=== PATIENT | male | born 1955 | race African-American/Black ===

== ENCOUNTER 2016-05-23 12:16 | Observation (INO) | payer OTHER ==
--- NOTE | ~2016-05-23 | HP ---
History And Physical [address] [place]. [address] NAME: JOAN RODRIGUES : 55 STATUS : DIS Domitila PAT#: [id number] AGE: 60 ADM/REG DATE : 05/23/16 MR#: [id number] REPORT SERV DATE: 05/24/16 DICTATED BY: KELSIE SHRESTHA DATE: 05/24/16 REPORT STATUS : Draft TRANSCRIBED BY: MODSha DATE: 05/24/16 DATE OF ADMISSION: 05/23/2016 PRIMARY CARE PROVIDER: Dr. Aniket Martinez. CHIEF COMPLAINT: Chest and left back pain along with dyspnea. HISTORY OF PRESENT ILLNESS: This is a pleasant 60-year-old male with a history of an acute stroke along with high blood pressure and high cholesterol. He has no personal history of coronary artery disease. He was in his usual state of good health until Saturday. He reports he felt left-sided back pain that was sharp and radiating through to his left chest. 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 He reports the symptoms continued and radiated through to the left chest. He reports when he took a deep breath, that his chest pain was worse and it sounds very pleuritic in nature. He also reports that he has had dyspnea since Saturday. He denies any chest pain with exertion. He denies any other symptoms. He has no recent illness. Chest pain is fully resolved since yesterday evening. PAST MEDICAL HISTORY: 1. Hypertension. 2. Hyperlipidemia. 3. CVA 10 years ago, seen by Dr. Isacc Whitaker neurologist. He does have subsequent mild peripheral left visual field loss but otherwise no deficits. PAST SURGICAL HISTORY: None. SOCIAL HISTORY: He is . He quit smoking over 14 years ago after smoking one and half packs per day x30 years. He works as a warehouse logistics coordinator. He does drink beer daily. He reports he drinks 6 packs of beer every day. He denies any history of going through withdrawals. FAMILY HISTORY: Father with history of CVA. REVIEW OF SYSTEMS: The patient denies ever having a cardiac evaluation. ALLERGIES: NO KNOWN ALLERGIES. HOME MEDICATIONS: Reviewed and is as follows: 1. Aspirin 81 mg p.o. daily. 2. Multivitamin 1 tablet p.o. daily. 3. Benicar 20 mg p.o. daily. 4. Crestor 10 mg p.o. daily. 5. Flomax 0.4 mg p.o. daily. PHYSICAL EXAMINATION: History And Physical [address] [place]. [address] NAME: JOAN RODRIGUES : 55 STATUS : DIS Domitila PAT#: [id number] AGE: 60 ADM/REG DATE : 05/23/16 MR#: [id number] REPORT SERV DATE: 05/24/16 DICTATED BY: KELSIE SHRESTHA DATE: 05/24/16 REPORT STATUS : Draft TRANSCRIBED BY: SHIRLEY DATE: 05/24/16 VITAL SIGNS: Oxygen saturation 93% on room air, body mass index 25.1, temperature 97.8, pulse 74, respiratory rate 18, and blood pressure 127/79. GENERAL: Well developed, well nourished. In no apparent distress. HEENT: Head normocephalic. No xanthelasma. Sclera clear, anicteric. Moist mucous membranes without pallor. No lymphadenopathy. No deficits noted. NECK: Trachea midline. Supple. No thyromegaly, JVD, or bruits. RESPIRATORY: Unlabored respirations. Breath sounds clear bilaterally to posterior auscultation. No wheezes, rhonchi or crackles. CARDIOVASCULAR: Regular rate and rhythm. No murmur, rub, or gallop appreciated. No chest wall tenderness to palpation. ABDOMEN: Soft, nontender, and nondistended. Active bowel sounds auscultated x4 quadrants. No organomegaly and no masses. No aortic bruit. EXTREMITIES: DP/PT and radial pulses 2+ bilaterally. No clubbing, cyanosis, or edema. SKIN: Warm, dry, intact. No rash. Normal turgor. MUSCULOSKELETAL: Moves all extremities in bed without difficulty. NEUROLOGIC/PSYCHIATRIC: Alert and oriented x3 with no acute distress. Affect appropriate to current situation. LABORATORY DATA: BMP: Sodium 139, potassium 3.8, creatinine 0.76, glucose 100, calcium 9, and magnesium 2.3. CBC: White blood cell count 4.8, hemoglobin 15.5, hematocrit 42.7, and platelets 173. Troponin less than 0.02 x3. CTA: No acute cardiopulmonary disease. No pulmonary emboli. A 4 mm nodule noted in the left lower lobe along with probable hepatic cyst. Their recommendation is for a CT with noncontrast in 6 months for both the nodules in the lung along with the hepatic cyst. Chest x-ray, subtle changes of the right lung base, otherwise clear. EKGs personally interpreted x3. Normal sinus rhythm and sinus arrhythmia x3. Telemetry, sinus rhythm, rate 60s. Nuclear stress test. This is considered to be an overall low risk stress test with imaging demonstrating no ischemia. Post exercise LVEF is 50%. Consider outpatient echocardiogram for LVEF followup. ASSESSMENT AND PLAN: 1. Precordial chest pain. This does have atypical features with a pleuritic nature. Chest pain is resolved. CTA revealed no pulmonary emboli. Negative troponins. EKG benign. Cardiac risk factors included age, hypertension, hyperlipidemia, and former tobacco use. I obtained a nuclear stress test today for risk factor stratification. It is considered to be low risk with no ischemia. Post exercise LVEF was estimated at 50%. The [facility] stage 1 only was achieved. Recommendation was to consider an outpatient echocardiogram for LVEF followup. Therefore, I will have him follow up with History And Physical [address] [address] NAME: JOAN RODRIGUES : 55 STATUS : DIS Domitila PAT#: [id number] AGE: 60 ADM/REG DATE : 05/23/16 MR#: [id number] REPORT SERV DATE: 05/24/16 DICTATED BY: KELSIE SHRESTHA DATE: 05/24/16 REPORT STATUS : Draft TRANSCRIBED BY: MODSha DATE: 05/24/16 the [facility] in 3 to 4 weeks as a new patient. At that time, they can further discuss whether or not the patient requires an echocardiogram. This will be arranged. The patient will be discharged home at this time. 2. Dyspnea. There is no hypoxia. Chest x-ray is clear. He is to follow up with primary care provider for further evaluation and treatment. 3. Hypertension. This is well controlled on current medications. 4. Hyperlipidemia. Continue his home statin. 5. History of CVA. We will continue his home medications to include aspirin and statin. 6. Left lower lobe nodule and probable hepatic cysts on CTA of the chest. I reviewed these results with the patient. I asked the copy to be sent to his primary care provider. He was counseled that he requires a CT with contrast in 6 months for monitoring of this nodule and cyst. This was per the recommendation of radiology. The patient voiced understanding and is in agreement with this plan. 7. Former tobacco use. I congratulated the patient on quitting. 8. Ongoing alcohol use. I have encouraged him to moderate his alcohol intake. The patient voiced understanding and is in agreement with the plan. He will be discharged home at this time. The patient was seen down the stress testing area by rounding production welding supervisor. CARY/SHIRLEY Kelsie Shrestha NP / [id number] CC: Melissa Patel, MSN, OIL BURNER REPAIRER-BC Francisco Martinez M.D.
[2016-05-23 12:55] LABS: BASOPHILS 0.4 %; BASOPHILS ABSOLUTE 0.02 10/3/uL (0.0-0.16); EOSINOPHILS 0.8 %; EOSINOPHILS ABSOLUTE 0.04 10/3/uL (0.0-0.53); HEMATOCRIT 43.7 % (40.0-51.0); HEMOGLOBIN 15.5 g/dL (13.6-17.8); IMMATURE GRANULOCYTES 0.2 %; IMMATURE GRANULOCYTES ABSOLUTE 0.01 10/3/uL (0.0-0.11); LYMPHOCYTES 19.5 %; LYMPHOCYTES ABSOLUTE 0.93 10/3/uL (0.67-4.30); MANUAL DIFF NO %; MEAN CORPUS HGB CONC 35.5 g/dL (32.0-36.0); MEAN CORPUSCULAR HEMOGLOB 30.9 pg (26.0-34.0); MEAN CORPUSCULAR VOLUME 87.1 fL (80-100); MEAN PLATELET VOLUME 9.5 fL (9.2-13.0); MONOCYTES 11.1 %; MONOCYTES ABSOLUTE 0.53 10/3/uL (0.21-1.20); NEUTROPHILS ABSOLUTE 3.25 10/3/uL (2.02-8.40); PLATELET COUNT 173 10/3/uL (150-400); RBC DISTRIBUTION WIDTH 14.3 % (12.0-16.0); RED CELL COUNT 5.02 10/6/uL (4.7-6.1); WHITE BLOOD CELLS 4.8 10/3/uL (4.5-10.5)
[2016-05-23 13:07] LABS: PROTIME (NOT ORD) 13.5 SEC (12.0-14.5)
[2016-05-23 13:08] LABS: PARTIAL THROMBO TIME 25.5 SEC (22.5-37.2)
[2016-05-23 13:14] LABS: BUN (BLOOD UREA NITROGEN) 9 MG/DL (6-23); CHEST PAIN PROFILE TAT 0 Hrs 23 Mins; CHLORIDE, SERUM 102 MMOL/L (96-112); CO2 (CARBON DIOXIDE) 28 MMOL/L (24-34); CREATININE 0.76 MG/DL (0.70-1.30); GFR AFRICAN AMERICAN 115 ML/MIN (>=60); GFR NON AFRICAN AMERICAN 99 ML/MIN (>=60); GLUCOSE, SERUM 100 MG/DL (60-99); POTASSIUM, SERUM 3.8 MMOL/L (3.5-5.3); SODIUM, SERUM 139 MMOL/L (135-148); TROPONIN I <0.02 NG/ML (<0.05)
[2016-05-23] MEDS ORDERED: HALF81 PO (14:35)
[2016-05-23] MEDS ORDERED: CRESTOR10 PO (14:36)
[2016-05-23] MEDS ORDERED: FLOMAX4 PO (14:36)
[2016-05-23] MEDS ORDERED: THERGRANM PO (14:36)
[2016-05-23] MEDS ORDERED: BENICAR20 PO (14:36)
== END 2016-05-24 15:35 | disposition home or self-care (01) ==
LOC: ER 12:16 → CDU1 18:33
PROVIDERS: Emergency Medicine
DX: R07.2 Precordial pain (principal); R06.00 Dyspnea, unspecified; I10 Essential (primary) hypertension; I69.398 Other sequelae of cerebral infarction; E78.5 Hyperlipidemia, unspecified; K76.9 Liver disease, unspecified; H53.8 Other visual disturbances; R91.1 Solitary pulmonary nodule; Z87.891 Personal history of nicotine dependence; Z72.89 Other problems related to lifestyle; Z82.3 Family history of stroke; Z79.82 Long term (current) use of aspirin; Z79.899 Other long term (current) drug therapy
CPT/HCPCS: 71020; 71275; 78452; 80048; 83735; 84484; 85025; 85610; 85730; 93005; 93017; 99285; A9270-GY; A9502; G0378; Q9967